=== PATIENT | female | born 1980 | race Caucasian/White ===

== ENCOUNTER 2017-03-25 00:07 | Inpatient (IN) | payer BC ==
[2017-03-25] VITALS (27 sets, daily range): BP systolic 105–137; BP diastolic 59–81; PULSE 75–130; TEMP 97.8–98.8
[~2017-03-25] VITALS: Ht 167.6 cm; Wt 91.8 kg
[2017-03-25 01:37] LABS: BASO % 0.2 % (0.0-2.0); EOS % 0.2 % (0-4.0); GRAN # 11.5 (1.4-6.5); GRAN % 84.6 % (42.2-75.2); HEMOGLOBIN 12.2 g/dl (12.5-16.0); LYMPH # 0.9 (1.2-3.4); LYMPH % 6.3 % (20.0-51.0); MEAN CELL VOLUME 81 fl (80.0-100.0); MEAN CORPUSCULAR HEMOGLOBIN 28 pg (27.0-31.0); MEAN CORPUSCULAR HGB CONC 35 g/dl (33.0-37.0); MEAN PLATELET VOLUME 10.6 fl (7.4-10.4); MONO # 0.8 (0.1-0.6); MONO % 6.1 % (1.7-9.3); PLATELET COUNT 153 K/mm3 (130-400); RED BLOOD COUNT 4.33 M/mm3 (4.10-5.30); REDCELL DISTRIBUTION WIDTH-CV 14.8 % (11.5-14.5); WHITE BLOOD COUNT 13.5 K/mm3 (4.8-10.8)
[2017-03-25 01:40] LABS: HEMATOCRIT 35.2 % (37.0-47.0)
[2017-03-26 08:15] VITALS: BP 135/85; PULSE 89; TEMP 97.6
[2017-03-26] MEDS ORDERED: IBU800 M1 PO (10:32)
== END 2017-03-26 11:40 | disposition home or self-care (01) | DRG 775 ==
LOC: LDRO → OB 00:15 → LDR 00:15 → OB 08:27
PROVIDERS: Obstetrics & Gynecology
PROC: 10E0XZZ Delivery of Products of Conception, External Approach (ICD-10-PCS; principal; 2017-03-25)
PROC: 0KQM0ZZ Repair Perineum Muscle, Open Approach (ICD-10-PCS; 2017-03-25)
DX: O48.0 Post-term pregnancy (principal); O36.0130 Maternal care for anti-D [Rh] antibodies, third trimester, not applicable or unspecified; O70.1 Second degree perineal laceration during delivery; Z3A.41 41 weeks gestation of pregnancy; Z37.0 Single live birth; Z23 Encounter for immunization
CPT/HCPCS: J2590; J7120

== ENCOUNTER → 2017-04-03 | Outpatient (CLI) | payer BC ==
[~2017-04-03] MED LIST: IBU800 M1 PO
== END ==
LOC: LAC 15:04
DX: Z39.1 Encounter for care and examination of lactating mother (principal); Z71.89 Other specified counseling

== ENCOUNTER → 2020-01-04 | Outpatient (CLI) | payer BC | LOC: COL.LAB 12:38 → ZCOL.LAB 12:38 | DX: M19.90 Unspecified osteoarthritis, unspecified site (principal) ==